=== PATIENT | female | born 1995 | race Two or more races ===

== ENCOUNTER → 2024-02-17 | Outpatient (CLI) | payer OTHER, SELFPAY ==
--- NOTE | 2024-02-17 07:15 | XR_ITS ---
Examination: MRI right wrist, without contrast Date and time of exam: February 17, 2024 0718 hrs. Indications: Right wrist pain numbness paresthesias 6 months Technique: Multiple axial sagittal and coronal images of the right wrist have been obtained with the Siemens high-resolution 1.5 [employer] MRI scanner. Images obtained include T2-weighted fat-suppressed sagittal sections, TR 3500, TE 46, T2 weighted coronal fat suppressed images, TR 3050, TE 84, T2-weighted transverse fat suppressed images, TR 3260, TE 63, proton density transverse images, TR 4720 TE 46, and T1 weighted coronal images, TR 560, TE 13. Findings: Distal radius distal ulna intact No territorial fibrocartilage No avascular necrosis No occult fracture Diffuse significant tendinitis of the flexor tendons Median nerve is not enlarged Diffuse significant tendinitis extensor tendons Impression: Severe diffuse tendinitis flexor and extensor tendons No occult fracture or avascular necrosis Intact triangular fibrocartilage
== END | disposition home or self-care (01) ==
LOC: SMRI 07:07
PROVIDERS: PCP Physician Assistant; Referring Provider Physician Assistant; Visit Provider Physician Assistant
DX: M67.833 Other specified disorders of tendon, right wrist (principal)
CPT/HCPCS: 73221

== ENCOUNTER → 2024-04-16 | Outpatient (CLI) | payer OTHER, SELFPAY ==
--- NOTE | 2024-04-16 12:38 | XR_ITS ---
Examination: Bilateral wrists 6 views TECHNIQUE: AP oblique lateral each wrist total 6 views Exam date and time: April 16, 2023 1339 hours INDICATIONS: Bilateral wrist pain beginning 8 months ago. FINDINGS: Mild osteopenia No fracture or dislocation involving either hand No erosive or other significant arthritic change involving either hand IMPRESSION: No erosive or other significant arthritic change involving either hand
--- NOTE | 2024-04-16 12:38 | XR_ITS ---
Examination: Bilateral hands, 6 views. Technique: AP, Oblique, Lateral each hand total 6 views Date and time of exam: April 16, 2024 1339 hours INDICATIONS: Bilateral wrist and hand pain beginning 8 months ago. FINDINGS: Mild juxta-articular bone demineralization No fracture or dislocation involving either hand No erosive or other significant arthritic change involving either hand Impression: No erosive or other significant arthritic change involving either hand
== END | disposition home or self-care (01) ==
PROVIDERS: PCP Physician Assistant; Referring Provider Nurse Practitioner Gerontology; Visit Provider Nurse Practitioner Gerontology
DX: M25.532 Pain in left wrist (principal); M25.531 Pain in right wrist; M79.641 Pain in right hand; M79.642 Pain in left hand
CPT/HCPCS: 73110; 73130